=== PATIENT | male | born 1960 | race Caucasian/White ===

== ENCOUNTER → 2018-02-01 15:15 | Outpatient (REF) | payer BC, SELFPAY ==
[2018-02-01 18:08] LABS: Basophils # 0.1 K/mm3 (0-0.2); Basophils % 0.8 % (0.1-2.0); Eosinophils # 0.1 K/mm3 (0.0-0.4); Eosinophils % 2.1 % (0.1-12.0); Hematocrit 43.6 % (42.0-52.0); Hemoglobin 15.3 g/dL (14.1-18.0); Lymphocytes # 1.5 K/mm3 (0.7-4.5); Lymphocytes % 21.4 K/mm3 (10-50); Mean Corpuscular HGB Conc 35.1 g/dL (31.8-35.4); Mean Corpuscular Hemoglobin 33.9 pg (27.0-31.2); Mean Corpuscular Volume 96.6 fl (80-94); Mean Platelet Volume 7.3 fl (7.4-10.4); Monocytes # 0.5 K/mm3 (0.1-1.0); Monocytes % 7.3 % (1.7-9.3); Neutrophils # 4.7 K/mm3 (1.8-7.8); Neutrophils % 68.4 % (37.0-80.0); Platelet Count 284 K/mm3 (142-424); Red Blood Count 4.51 M/mm3 (4.60-6.20); White Blood Count 6.9 K/mm3 (4.8-10.8)
[2018-02-01 18:30] LABS: Alanine Aminotransferase 42 U/L (12-78); Albumin Level 4.2 gm/dL (3.4-5.0); Albumin/Globulin Ratio 1.2 (1.1-1.8); Alkaline Phosphatase 85 U/L (46-116); Anion Gap 15.2 mEq/L (5-15); Aspartate Amino Transferase 21 U/L (15-37); Bilirubin,Total 0.3 mg/dL (0.2-1.0); Blood Urea Nitrogen 16 mg/dL (7-18); Calcium 9.8 mg/dL (8.5-10.1); Carbon Dioxide 26 mmol/L (21.0-32.0); Chloride 103 mmol/L (98-107); Chol/HDL Ratio 5.7 (1-3.5); Cholesterol 170 mg/dL (140-200); Estimated Glomerular Filt Rate 69 ml/min (>60); Free T4 (Free Thyroxine) 1.02 ng/dl (0.76-1.46); GFR (African American) 84 ML/MIN (>60); Globulin 3.6 gm/dl (1.3-3.2); Glucose 120 mg/dL (74-106); HDL Cholesterol 30 mg/dL (27-67); LDL Cholesterol 73 mg/dL (0-130); Potassium 4.2 mmoL/L (3.5-5.1); Sodium 140 mmol/L (136-145); Thyroid Stimulating Hormone 3.02 uIU/ml (0.358-3.740); Total Protein,Serum 7.8 gm/dL (6.4-8.2); Triglycerides 335 mg/dL (30-200); VLDL Cholesterol 67 mg/dL (0-40)
[2018-02-03 13:31] LABS: PSA, Free 0.19 ng/mL; Prostate Specific Ag 0.4 ng/mL (0.0-4.0)
== END ==
LOC: LAB 15:15
PROVIDERS: Visit Provider Emergency Medicine
DX: E03.9 Hypothyroidism, unspecified (principal); R53.83 Other fatigue
CPT/HCPCS: 80053; 80061; 82652; 84153; 84154; 84439; 84443; 85025

== ENCOUNTER → 2018-07-13 19:12 | Outpatient (REF) | payer BC, SELFPAY ==
[2018-07-13 19:51] LABS: Basophils % 0.8 % (0.1-2.0); Eosinophils # 0.1 K/mm3 (0.0-0.4); Eosinophils % 1.8 % (0.1-12.0); Hematocrit 45.5 % (42.0-52.0); Hemoglobin 15.7 g/dL (14.1-18.0); Lymphocytes # 1.2 K/mm3 (0.7-4.5); Lymphocytes % 26.3 K/mm3 (10-50); Mean Corpuscular HGB Conc 34.5 g/dL (31.8-35.4); Mean Corpuscular Hemoglobin 33.9 pg (27.0-31.2); Mean Corpuscular Volume 98.1 fl (80-94); Mean Platelet Volume 8.2 fl (7.4-10.4); Monocytes # 0.4 K/mm3 (0.1-1.0); Monocytes % 8.5 % (1.7-9.3); Neutrophils # 2.8 K/mm3 (1.8-7.8); Neutrophils % 62.6 % (37.0-80.0); Platelet Count 260 K/mm3 (142-424); Red Blood Count 4.64 M/mm3 (4.60-6.20); Red Cell Distribution Width 13.8 % (11.5-17.5); White Blood Count 4.5 K/mm3 (4.8-10.8)
[2018-07-13 20:33] LABS: Alanine Aminotransferase 51 U/L (12-78); Albumin Level 4.4 gm/dL (3.4-5.0); Albumin/Globulin Ratio 1.2 (1.1-1.8); Alkaline Phosphatase 81 U/L (46-116); Anion Gap 14.5 mEq/L (5-15); Aspartate Amino Transferase 28 U/L (15-37); Bilirubin,Total 0.6 mg/dL (0.2-1.0); Blood Urea Nitrogen 12 mg/dL (7-18); Calcium 9.5 mg/dL (8.5-10.1); Carbon Dioxide 28 mmol/L (21.0-32.0); Chloride 103 mmol/L (98-107); Chol/HDL Ratio 4.2 (1-3.5); Cholesterol 148 mg/dL (140-200); Creatinine,Serum 1.06 mg/dL (0.70-1.30); Estimated Glomerular Filt Rate 73 ml/min (>60); Free T4 (Free Thyroxine) 1.07 ng/dl (0.76-1.46); GFR (African American) 88 ML/MIN (>60); Globulin 3.6 gm/dl (1.3-3.2); Glucose 96 mg/dL (74-106); HDL Cholesterol 35 mg/dL (27-67); LDL Cholesterol 81 mg/dL (0-130); Potassium 4.5 mmoL/L (3.5-5.1); Sodium 141 mmol/L (136-145); Thyroid Stimulating Hormone 3.29 uIU/ml (0.358-3.740); Triglycerides 158 mg/dL (30-200); VLDL Cholesterol 32 mg/dL (0-40)
[2018-07-13 21:41] LABS: Hemoglobin A1C 5.5 % (0.0-7.0)
[2018-07-15 18:06] LABS: PSA, Free 0.19 ng/mL; Prostate Specific Ag 0.4 ng/mL (0.0-4.0)
== END ==
LOC: LAB 19:12
PROVIDERS: PCP Physician Assistant; Visit Provider Physician Assistant
DX: R53.83 Other fatigue (principal)
CPT/HCPCS: 80053; 80061; 83036; 84153; 84154; 84439; 84443; 85025

== ENCOUNTER → 2019-05-16 14:33 | Outpatient (CLI) | payer MEDICAID, SELFPAY ==
[2019-05-16 15:06] LABS: Basophils % 0.8 % (0.1-2.0); Eosinophils # 0.1 K/mm3 (0.0-0.4); Eosinophils % 2.4 % (0.1-12.0); Hematocrit 48.7 % (42.0-52.0); Hemoglobin 16.4 g/dL (14.1-18.0); Lymphocytes # 1.2 K/mm3 (0.7-4.5); Lymphocytes % 26.1 % (10-50); Mean Corpuscular HGB Conc 33.7 g/dL (31.8-35.4); Mean Corpuscular Hemoglobin 32.7 pg (27.0-31.2); Mean Corpuscular Volume 97.1 fl (80-94); Mean Platelet Volume 7.2 fl (7.4-10.4); Monocytes # 0.4 K/mm3 (0.1-1.0); Monocytes % 8.3 % (1.7-9.3); Neutrophils # 2.9 K/mm3 (1.8-7.8); Neutrophils % 62.5 % (37.0-80.0); Platelet Count 277 K/mm3 (142-424); Red Blood Count 5.01 M/mm3 (4.60-6.20); Red Cell Distribution Width 13.4 % (11.5-17.5); White Blood Count 4.7 K/mm3 (4.8-10.8)
[2019-05-16 16:06] LABS: Alanine Aminotransferase 55 U/L (12-78); Albumin Level 4.3 gm/dL (3.4-5.0); Albumin/Globulin Ratio 1.2 (1.1-1.8); Alkaline Phosphatase 72 U/L (46-116); Anion Gap 13.9 mEq/L (5-15); Aspartate Amino Transferase 24 U/L (15-37); Bilirubin,Total 0.4 mg/dL (0.2-1.0); Blood Urea Nitrogen 14 mg/dL (7-18); Calcium 9.9 mg/dL (8.5-10.1); Carbon Dioxide 28 mmol/L (21.0-32.0); Chloride 101 mmol/L (98-107); Chol/HDL Ratio 5.3 (1-3.5); Cholesterol 169 mg/dL (140-200); Creatinine,Serum 1.04 mg/dL (0.70-1.30); Estimated Glomerular Filt Rate 74 ml/min (>60); Free T4 (Free Thyroxine) 0.96 ng/dl (0.76-1.46); GFR (African American) 89 ML/MIN (>60); Globulin 3.7 gm/dl (1.3-3.2); Glucose 106 mg/dL (74-106); HDL Cholesterol 32 mg/dL (27-67); LDL Cholesterol 83 mg/dL (0-130); Potassium 3.9 mmoL/L (3.5-5.1); Sodium 139 mmol/L (136-145); Triglycerides 269 mg/dL (30-200); VLDL Cholesterol 54 mg/dL (0-40)
[2019-05-18 12:35] LABS: PSA, Free 0.18 ng/mL; Prostate Specific Ag 0.4 ng/mL (0.0-4.0); Vitamin D 25 Hydroxy 34.5 ng/mL (30.0-100.0)
== END ==
PROVIDERS: Visit Provider Emergency Medicine
DX: I10 Essential (primary) hypertension (principal); E03.9 Hypothyroidism, unspecified; E66.9 Obesity, unspecified; G47.33 Obstructive sleep apnea (adult) (pediatric); R53.83 Other fatigue; Z99.89 Dependence on other enabling machines and devices
CPT/HCPCS: 80053; 80061; 82652; 84153; 84154; 84439; 84443; 85025

== ENCOUNTER → 2019-05-24 17:57 | Outpatient (CLI) | payer MEDICAID, SELFPAY ==
[2019-05-26 11:45] LABS: Folate 10.8 ng/mL (>3.0)
[2019-05-26 11:45] LABS: Vitamin B12 263 pg/mL (232-1245)
== END ==
PROVIDERS: Visit Provider Emergency Medicine
DX: D64.9 Anemia, unspecified (principal)
CPT/HCPCS: 82607; 82746

== ENCOUNTER 2020-05-19 15:41 | Emergency (ER) | payer OTHER, SELFPAY ==
[2020-05-19 16:46] VITALS: BP 136/81; PULSE 67; RESP 17; TEMP 36.9; O2SAT 98; BMI 35.3
--- NOTE | 2020-05-19 17:05 | HMH.EDUTC ---
[facility] [place] Clinical Impression: Tendonitis, Achilles, right Disposition: Home, Self-Care Condition on Discharge: Good Instructions: Achilles Tendinopathy Additional Instructions: Rest the extremity, Wear the tangela wrap for compression, Elevate the extremity as tolerated while you are resting. Take ibuprofen for pain. Take the steroids as directed. Follow up with Dr. Woodruff. I put in a referral but you need to call her office and schedule an appointment. Follow up with your regular doctor. GO TO THE ER FOR ANY WORSENING SYMPTOMS Prescriptions: methylPREDNISolone [Medrol] 4 mg PO DIRECTED 6 Days #21 tab.[email or web address] Transmission Status: Received by [id number] Referrals: Rubens Ramos MD [Primary Care Provider] - Abimbola Woodruff DPM [Staff Physician] - Time of Disposition: 17:15 Medical Decision Making - Medical Records Medical records reviewed: No: I reviewed the patient's medical records. - Coleman Inquiry Pt receiving controlled substance: No Vital Signs: 05/19/20 16:46 05/19/20 17:20 Temperature 98.4 F 98.4 F Temperature Source Oral Pulse Rate 67 Pulse Rate [Right Brachial] 67 Respiratory Rate 17 17 Blood Pressure 136/81 Blood Pressure [Right Arm] 136/81 Blood Pressure Mean [Right Arm] 99 Blood Pressure Source [Right Arm] Automatic Cuff Blood Pressure Position [Right Arm] Sitting 02 Sat by Pulse Oximetry 98 Oxygen Delivery Method Room Air [facility] [place] HPI - General Stated complaint: Knot on left foot Time Seen by Provider: 05/19/20 17:05 Mode of Arrival: Ambulatory Source of Information: Patient Limitations: No Limitations Description of Symptoms (Recalled from Triage Doc. by RN): PATIENT C/O KNOT ON INSIDE OF LEFT FOOT SINCE WEDNESDAY HEENT Symptoms (Recalled from RN notes): No Resp Symptoms (Recalled from RN notes): No Skin Symptoms (Recalled from RN notes): Yes MS Symptoms (Recalled from RN notes): No Functional Status (Recalled from RN notes): WNL - History of Present Illness Provider Complaint: He has had a painful raised area on the back of his left heel for the past 3 days. He denies any injury. He does state that he has been having to walk more than he normally does. - Related Data Previous Rx's Medication Instructions Recorded ergocalciferol (vitamin D2) 1,250 See Rx Instructions .ROUTE 02/07/20 mcg (50,000 unit) capsule .COMPLEX #14 each hydrochlorothiazide 12.5 mg tablet 12.5 mg PO DAILY #90 tab 02/07/20 levothyroxine 50 mcg tablet 50 mcg PO DAILY #90 tab 02/07/20 losartan 50 mg tablet 50 mg PO DAILY #90 tab 02/07/20 paroxetine HCl 40 mg tablet See Rx Instructions .ROUTE 02/07/20 .COMPLEX #90 tablet methylPREDNISolone [Medrol] 4 mg PO DIRECTED 6 Days #21 05/19/20 tab.[email or web address] Allergies Allergy/AdvReac Type Severity Reaction Status Date / Time No Known Allergies Allergy Verified 02/07/20 14:07 - Worker's Comp Is this a Worker's Comp case?: No [facility] History - Hepatitis A Screen Drug use history?: No High risk sexual behaviors?: No History of sexually transmitted infection?: No Currently employed?: No Childcare worker?: No Do you have indoor plumbing?: Yes Do you have electricity?: Yes Attestation statement:: This patient has been screened for Hepatitis A risk factors. I have reviewed the patient's past medical history: Yes Medical History: Reports:: Hypertension Denies:: Diabetes Mellitus Type 1, Diabetes Mellitus Type 2, Internal Pacemaker, Lung Disease, Seizures Other Medical History: Reports: Hypothyroidism Other Surgeries: Yes: Colonoscopy, Other. No: Pacemaker Amputation: No Fractures: No - Social History Smoking Status: Never smoker Alcohol Intake: never Alcohol Intake Frequency:: other Substance Use Type: denies use Occupational Status: other Housing: house Household Members: spouse, children Family Hx:: Unable to obtain ROS Obtained: Yes All systems reviewed & no additional complaints - [employer]
[2020-05-19 17:20] VITALS: BP 136/81; PULSE 67; RESP 17; TEMP 36.9; O2SAT 98
== END 2020-05-19 17:26 | disposition home or self-care (01) ==
PROVIDERS: Emergency Provider Nurse Practitioner Family; PCP Emergency Medicine
DX: M76.62 Achilles tendinitis, left leg (principal); I10 Essential (primary) hypertension; E03.9 Hypothyroidism, unspecified; Z79.899 Other long term (current) drug therapy
CPT/HCPCS: 99201

== ENCOUNTER → 2020-06-05 18:19 | Outpatient (CLI) | payer OTHER, SELFPAY ==
[2020-06-05 18:53] LABS: Basophils # 0.1 K/mm3 (0-0.2); Basophils % 0.7 % (0.1-2.0); Eosinophils # 0.1 K/mm3 (0.0-0.4); Eosinophils % 2.3 % (0.1-12.0); Hemoglobin 16.2 g/dL (14.1-18.0); Lymphocytes # 1.4 K/mm3 (0.7-4.5); Lymphocytes % 22.6 % (10-50); Mean Corpuscular HGB Conc 33.7 g/dL (31.8-35.4); Mean Platelet Volume 7.9 fl (7.4-10.4); Monocytes # 0.6 K/mm3 (0.1-1.0); Monocytes % 9.8 % (1.7-9.3); Neutrophils % 64.7 % (37.0-80.0); Platelet Count 241 K/mm3 (142-424); Red Blood Count 4.76 M/mm3 (4.60-6.20); Red Cell Distribution Width 13.7 % (11.5-17.5); White Blood Count 6.2 K/mm3 (4.8-10.8)
[2020-06-05 19:04] LABS: Alanine Aminotransferase 35 U/L (12-78); Albumin Level 4.5 g/dl (3.5-5.0); Albumin/Globulin Ratio 1.5 (1.1-1.8); Alkaline Phosphatase 95 U/L (38-126); Anion Gap 16.1 mEq/L (5-15); Aspartate Amino Transferase 32 U/L (17-59); Bilirubin,Total 0.5 mg/dl (0.2-1.3); Blood Urea Nitrogen 13 mg/dl (9-20); Carbon Dioxide 26 mmol/L (22.0-30.0); Chloride 100 mmol/L (98-107); Chol/HDL Ratio 5.4 (1-3.5); Cholesterol 172 mg/dl (140-200); Estimated Glomerular Filt Rate 87 ml/min (>60); GFR (African American) 105 ML/MIN (>60); Glucose 115 mg/dl (74-100); HDL Cholesterol 32 mg/dl (40-60); Potassium 4.1 mmoL/L (3.5-5.1); Sodium 138 mmol/L (136-145); Total Protein,Serum 7.5 g/dl (6.3-8.2)
[2020-06-05 19:05] LABS: Triglycerides 476 mg/dl (30-150)
[2020-06-05 19:16] LABS: Direct LDL Cholesterol 101.41 mg/dL (100-129)
[2020-06-05 19:19] LABS: 25-OH Vitamin D, Total 34.8 ng/mL (30-100)
[2020-06-05 19:23] LABS: T4 (Thyroxine) 10.3 ug/dl (5.53-11.0)
[2020-06-05 19:36] LABS: Prostate Specific Ag Screen 0.5 ng/ml (0.0-4.0); Thyroid Stimulating Hormone 2.68 uIU/mL (0.465-4.68)
== END ==
PROVIDERS: Visit Provider Nurse Practitioner Family
DX: I10 Essential (primary) hypertension (principal); E03.9 Hypothyroidism, unspecified; E55.9 Vitamin D deficiency, unspecified; Z12.5 Encounter for screening for malignant neoplasm of prostate
CPT/HCPCS: 80053; 80061; 82306; 84436; 84443; 85025; G0103

== ENCOUNTER → 2020-06-11 17:16 | Outpatient (CLI) | payer OTHER, SELFPAY ==
[2020-06-11 18:09] LABS: Hemoglobin A1C 6.3 % (4.0-6.0)
== END ==
PROVIDERS: Visit Provider Nurse Practitioner Family
DX: R73.09 Other abnormal glucose (principal)
CPT/HCPCS: 36415; 83036

== ENCOUNTER → 2021-02-10 14:31 | Outpatient (CLI) | payer OTHER, SELFPAY ==
--- NOTE | 2021-02-10 | ECG_ITS ---
APPROVED REPORT Exam: Resting ECG HR:98 bpm ECG Measurements Heart Rate 98 AXES [place] 138 P 52 QRSd 92 QRS -28 QT 350 T 52 QTc 446 Conclusion Normal sinus rhythm Low voltage QRS O/w normal ECG Electronically signed by : eTjas Hou, 02/15/2021 07:37:35
[2021-02-10 15:17] LABS: Basophils # 0.1 K/mm3 (0-0.2); Basophils % 1.4 % (0.1-2.0); Eosinophils # 0.1 K/mm3 (0.0-0.4); Eosinophils % 0.8 % (0.1-12.0); Hematocrit 47.9 % (42.0-52.0); Hemoglobin 16.7 g/dL (14.1-18.0); Lymphocytes # 1.4 K/mm3 (0.7-4.5); Lymphocytes % 20.2 % (10-50); Mean Corpuscular HGB Conc 34.9 g/dL (31.8-35.4); Mean Corpuscular Hemoglobin 33.2 pg (27.0-31.2); Mean Corpuscular Volume 95.1 fl (80-94); Mean Platelet Volume 7.2 fl (7.4-10.4); Monocytes # 0.6 K/mm3 (0.1-1.0); Monocytes % 8.7 % (1.7-9.3); Neutrophils # 4.8 K/mm3 (1.8-7.8); Platelet Count 285 K/mm3 (142-424); Red Blood Count 5.04 M/mm3 (4.60-6.20); Red Cell Distribution Width 13.9 % (11.5-17.5)
== END ==
PROVIDERS: Visit Provider Otolaryngology
DX: Z01.812 Encounter for preprocedural laboratory examination (principal); Z11.52 Encounter for screening for COVID-19; L98.9 Disorder of the skin and subcutaneous tissue, unspecified; H02.9 Unspecified disorder of eyelid
CPT/HCPCS: 36415; 85025; 93005; U0003

== ENCOUNTER 2021-02-13 06:19 | Day surgery (SDC) | payer OTHER, SELFPAY ==
[2021-02-11 13:26] VITALS: BMI 37.2
[2021-02-13] VITALS (9 sets, daily range): BP systolic 121–152; BP diastolic 74–89; PULSE 87–105; RESP 18–20; TEMP 36.3–36.6; O2SAT 93–99
--- NOTE | 2021-02-13 07:03 | HMH.ANESCL ---
[facility] Anesthesia Checklist - Patient Identification Patient Identification: Arm Band - Structural Data Admitted From: Home Planned Operative Procedure/s: Excision neoplasm, lesion L. eyelid/neck Consent for Planned Operative Procedure(s) Verified: Yes - NPO Status Verified Time NPO: 08:00 (Sip of water with meds) - Additional verifications Anesthesia Reactions: No Hx Blood Transfusions: No Blood Transfusion Reaction: No - Airway Assessment C-Spine Mobility Assessed: Yes TMJ Mobility Assessed: Yes Dentition: Poor Dentition - Neurological Assessment Level of Consciousness: Awake Hx Seizures: No Numbness or tingling in extremities: No - Anesthesia Plan Anesthesia Risk discussed: Yes Anesthesia Plan: Verified ASA Class: III Anesthesia Type: General [facility] History I have reviewed the patient's past medical history: Yes Medical History: Reports:: Gastroesophageal Reflux Disease(GERD), Hypertension Denies:: Cancer, Diabetes Mellitus Type 1, Diabetes Mellitus Type 2, Internal Pacemaker, Lung Disease, MRSA, Seizures *Have you ever received a pneumonia vaccine?: No *Have you received a flu vaccine this season?: No Other Medical History: Reports: Hypothyroidism, Other (JUSTO). Denies: Blood Transfusion Reaction Anesthesia experience/problems:: None Other Surgeries: Yes: Colonoscopy, Other. No: Pacemaker Amputation: No Fractures: No - *Social History Last grade of school completed: High school graduate Smoking Status: Never smoker Alcohol Intake: never Alcohol Intake Frequency:: other Substance Use Type: denies use *Occupational Status:: unemployed Housing: house Household Members: family *Travel in the last 8 weeks: None Family Hx:: Cancer
--- NOTE | 2021-02-13 08:29 | HMH.ANESI ---
[facility] Anesthesia Record Part I Intake, IV Amount: 600 Estimated blood loss (mL): 0 Urine output (mL): 0 Blood Pressure: 121/76 SaO2: 93 Pulse Rate: 87 Respiratory Rate: 19 Temperature: 97.4 F Patient is:: Drowsy, Oral/Nasal airway Stable to PACU at:: 08:25
--- NOTE | 2021-02-13 08:56 | PC.NURSE ---
0852-detailed report called to KRISTIAN Broderick 0855-pt transported to post op via stretcher w/nic rails up and left in care of KRISTIAN Broderick, vss, pt stable
--- NOTE | 2021-02-13 08:59 | P.OP_ITS ---
Date of procedure: 02/13/21 Pre-op Diagnosis:: 1. 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 Excision of neoplasm left lower eyelid 2.2 with tissue rearrangement geometric plastic repair 2. Excision of neoplasm left neck 3.8 cm with tissue rearrangement geometric plastic repair Surgeon:: Braden Beaver MD GLASSWARE MAKER:: Other (Thuri) Anesthesia: GETA Estimated blood loss (mL): 5 Operative findings:: same Operative note:: With the patient under general anesthetic the, left face was prepped and draped. The lesion on the lower aspect of the left lower eyelid was infiltrated with 2 cc of 2% lidocaine containing epinephrine. The rigoberto out was incised and the lesion was excised and submitted it measured 2.2 cm. Bleeding was stopped with bipolar cautery. Inferior incisions were made and a tissue rearrangement geometric plastic repair was done with interrupted 3-0 nylon sutures. A Steri- Strip dressing was applied. The patient was repositioned and the left neck was prepped and draped. The lesion measured 3.8 cm and the rigoberto out was incised and the lesion was excised and submitted. Superior and inferior incisions were made and a tissue rearrangement geometric plastic repair was done after Surgicel snow was placed in the defect and all of the bleeding was stopped with bipolar cautery. An excellent repair was obtained using 3-0 nylon and a Dermabond dressing was applied. The patient tolerated the procedure well and was sent to recovery in g ood general condition. Condition: stable Disposition: PACU Complications:: none
--- NOTE | 2021-02-13 12:03 | HMH.ANESII ---
[facility] Anesthesia Record Part II Discharge Time: 09:05 Destination: [facility] PACU nurse assessment reviewed?: Yes Patient Condition:: Good Anesthesia Complications:: None Swallowing reflex intact?: Yes Cyanosis?: No Blood Pressure: 133/81 Pulse Rate: 93 Temperature: 97.8 F Mental Status: Alert & Oriented Pain level:: 0 Nausea and/or vomitting:: None Intake, IV Amount: 500
== END 2021-02-13 09:24 | disposition home or self-care (01) ==
LOC: OR 06:21
PROVIDERS: PCP Nurse Practitioner Family; Visit Provider Otolaryngology
PROC: (CPT 14060; principal; 2021-02-13 07:30)
DX: D22.4 Melanocytic nevi of scalp and neck (principal); D22.122 Melanocytic nevi of left lower eyelid, including canthus; K21.9 Gastro-esophageal reflux disease without esophagitis; I10 Essential (primary) hypertension; E03.9 Hypothyroidism, unspecified; G47.33 Obstructive sleep apnea (adult) (pediatric); Z80.9 Family history of malignant neoplasm, unspecified; Z79.899 Other long term (current) drug therapy
CPT/HCPCS: 14060; 14040; 96374; 96375

== ENCOUNTER → 2022-09-23 15:30 | Outpatient (CLI) | payer OTHER, SELFPAY ==
[2022-09-23 20:35] LABS: Chloride 103 mmol/L (98-107); Potassium 4.1 mmoL/L (3.5-5.1); Sodium 139 mmol/L (136-145)
[2022-09-23 20:38] LABS: Alanine Aminotransferase 41 U/L (12-78); Albumin Level 4.7 g/dl (3.5-5.0); Albumin/Globulin Ratio 1.5 (1.1-1.8); Alkaline Phosphatase 80 U/L (38-126); Anion Gap 14.1 mEq/L (5-15); Aspartate Amino Transferase 31 U/L (17-59); Bilirubin,Total 0.5 mg/dl (0.2-1.3); Blood Urea Nitrogen 13 mg/dl (9-20); Carbon Dioxide 26 mmol/L (22.0-30.0); Cholesterol 186 mg/dl (140-200); Estimated Glomerular Filt Rate 86 ml/min (>60); GFR (African American) 105 ML/MIN (>60); Globulin 3.2 g/dL (1.3-3.2); Total Protein,Serum 7.9 g/dl (6.3-8.2); Triglycerides 331 mg/dl (30-150); VLDL Cholesterol 66 mg/dL (0-40)
[2022-09-23 20:39] LABS: Calcium 9.8 mg/dl (8.4-10.2); Chol/HDL Ratio 5.3 (1-3.5); Glucose 117 mg/dl (74-100); HDL Cholesterol 35 mg/dl (40-60)
[2022-09-23 20:51] LABS: Basophils # 0.1 K/mm3 (0-0.2); Basophils % 1.6 % (0.1-2.0); Eosinophils # 0.1 K/mm3 (0.0-0.4); Eosinophils % 2.2 % (0.1-12.0); Hematocrit 48.1 % (42.0-52.0); Hemoglobin 16.5 g/dL (14.1-18.0); Lymphocytes # 1.9 K/mm3 (0.7-4.5); Lymphocytes % 33.9 % (10-50); Mean Corpuscular HGB Conc 34.4 g/dL (31.8-35.4); Mean Corpuscular Hemoglobin 33.9 pg (27.0-31.2); Mean Corpuscular Volume 98.6 fl (80-94); Mean Platelet Volume 8.6 fl (7.4-10.4); Monocytes # 0.6 K/mm3 (0.1-1.0); Monocytes % 9.6 % (1.7-9.3); Neutrophils % 52.7 % (37.0-80.0); Platelet Count 300 K/mm3 (142-424); Red Blood Count 4.88 M/mm3 (4.60-6.20); Red Cell Distribution Width 13.9 % (11.5-17.5); White Blood Count 5.7 K/mm3 (4.8-10.8)
[2022-09-23 21:04] LABS: Direct LDL Cholesterol 103.96 mg/dL (100-129)
[2022-09-23 21:09] LABS: Prostate Specific Ag Screen 0.6 ng/ml (0.0-4.0)
[2022-09-23 21:10] LABS: Thyroid Stimulating Hormone 3.24 uIU/mL (0.465-4.68)
[2022-09-23 21:29] LABS: Vitamin B12 236 pg/mL (239-931)
[2022-09-23 21:53] LABS: Folate 7.23 ng/mL
== END ==
PROVIDERS: PCP Nurse Practitioner Family; Visit Provider Nurse Practitioner Family
DX: I10 Essential (primary) hypertension (principal); R53.83 Other fatigue; E53.8 Deficiency of other specified B group vitamins; Z12.5 Encounter for screening for malignant neoplasm of prostate
CPT/HCPCS: 80053; 80061; 82607; 82746; 84443; 85025; G0103

== ENCOUNTER 2024-03-24 14:50 | Outpatient (CLI) | payer OTHER, SELFPAY ==
[2024-03-24 18:13] LABS: Basophils # 0.1 K/mm3 (0-0.2); Basophils % 1.5 % (0.1-2.0); Eosinophils # 0.1 K/mm3 (0.0-0.4); Eosinophils % 1.2 % (0.1-12.0); Hematocrit 44.8 % (42.0-52.0); Hemoglobin 15.2 g/dL (14.1-18.0); Lymphocytes # 1.2 K/mm3 (0.7-4.5); Lymphocytes % 19.3 % (10-50); Mean Corpuscular HGB Conc 33.9 g/dL (31.8-35.4); Mean Corpuscular Hemoglobin 32.6 pg (27.0-31.2); Mean Corpuscular Volume 96.3 fl (80-94); Mean Platelet Volume 8.4 fl (7.4-10.4); Monocytes # 0.6 K/mm3 (0.1-1.0); Monocytes % 9.6 % (1.7-9.3); Neutrophils # 4.2 K/mm3 (1.8-7.8); Neutrophils % 68.4 % (37.0-80.0); Platelet Count 247 K/mm3 (142-424); Red Blood Count 4.65 M/mm3 (4.60-6.20); White Blood Count 6.1 K/mm3 (4.8-10.8)
[2024-03-24 18:45] LABS: Chloride 101 mmol/L (98-107); Potassium 4.1 mmoL/L (3.5-5.1); Sodium 135 mmol/L (136-145)
[2024-03-24 18:47] LABS: Alanine Aminotransferase 35 U/L (12-78); Aspartate Amino Transferase 24 U/L (17-59); Blood Urea Nitrogen 12 mg/dl (9-20); Estimated Glomerular Filt Rate 86 ml/min (>60); GFR (African American) 104 ML/MIN (>60)
[2024-03-24 18:48] LABS: Albumin Level 4.5 g/dl (3.5-5.0); Albumin/Globulin Ratio 1.5 (1.1-1.8); Alkaline Phosphatase 73 U/L (38-126); Anion Gap 13.1 mEq/L (5-15); Calcium 9.5 mg/dl (8.4-10.2); Carbon Dioxide 25 mmol/L (22.0-30.0); Cholesterol 178 mg/dl (140-200); Glucose 200 mg/dl (74-100); Total Protein,Serum 7.5 g/dl (6.3-8.2); Triglycerides 249 mg/dl (30-150); VLDL Cholesterol 50 mg/dL (0-40)
[2024-03-24 18:49] LABS: Chol/HDL Ratio 4.9 (1-3.5); HDL Cholesterol 36 mg/dl (40-60)
[2024-03-24 18:59] LABS: Direct LDL Cholesterol 106.17 mg/dL (100-129)
[2024-03-24 19:00] LABS: Troponin I < 0.01 ng/ml (0.00-0.034)
[2024-03-24 19:01] LABS: Triiodothryronine (T3) Uptake 28 % (23.5-40.5)
[2024-03-24 19:02] LABS: Free Thyroxine Index 2.4 ug/dL (5.93-13.13); T4 (Thyroxine) 8.5 ug/dl (5.53-11.0)
[2024-03-24 19:03] LABS: 25-OH Vitamin D, Total 33.1 ng/mL (30-100)
[2024-03-24 19:06] LABS: Hemoglobin A1C 9.6 % (4.0-6.0)
[2024-03-24 20:30] LABS: Prostate Specific Ag Screen 0.4 ng/ml (0.0-4.0)
== END 2024-03-24 23:59 | disposition home or self-care (01) ==
LOC: LAB.DROPOF 03-25 10:51
PROVIDERS: PCP Family Medicine; Visit Provider Family Medicine
DX: E03.9 Hypothyroidism, unspecified (principal); E66.9 Obesity, unspecified; I10 Essential (primary) hypertension; E55.9 Vitamin D deficiency, unspecified
CPT/HCPCS: 80050; 80053; 80061; 82306; 83036; 84436; 84443; 84479; 84484; 85025; G0103

== ENCOUNTER 2024-03-27 09:52 | Outpatient (CLI) | payer OTHER, SELFPAY ==
--- NOTE | 2024-03-27 10:01 | XR_ITS ---
FINAL REPORT CLINICAL HISTORY: Right knee pain FINDINGS: Three views of the right knee reveal no evidence of fracture or dislocation. The bony alignment is normal. There are mild degenerative changes. There is a small joint effusion. No localized soft tissue abnormality is identified. IMPRESSION: Mild degenerative changes and a small joint effusion. Reviewed, Interpreted and Dictated by Butch Lacey III, MD Transcribed by Mary Mcdowell Authenticated and . [facility]
== END 2024-03-27 23:59 | disposition home or self-care (01) ==
LOC: RAD 09:54
PROVIDERS: PCP Internal Medicine; Visit Provider Internal Medicine
DX: M25.561 Pain in right knee (principal)
CPT/HCPCS: 73562

== ENCOUNTER 2024-04-06 14:51 | Outpatient (CLI) | payer OTHER, SELFPAY ==
--- NOTE | 2024-04-06 14:56 | CA_ITS ---
APPROVED REPORT EXAM: Comprehensive 2D, Doppler, and color-flow Echocardiogram Fashion Artist: Janis Davila, HERRERA, RVS Ht: 6 ft 2 in Wt: 277lbs BSA: 2.50 BP: 142/78 mmHg Indications: CP, ABN EKG, JUSTO, DM Echo Enhancing Agent Indication: no IV access Comments: Poor acoustics throughout due to bodyhabitus. 2D Dimensions IVSd 1.37 cm LVEF (Visual) 75.70 % PWd 1.11 cm LA Volume 52.20 mL LVDd 5.39 cm LA Volume Index 20.90 mL/m2 (M/F) 16-34 LVDs 2.97 cm Aortic Root 3.04 cm Left Atrium 3.75 cm RVID Base (AP4) 2.83 cm (M/F) 2.5-4.1 LVOT 2.15 cm (M/F) 1.5-2.5 M-Mode Dimensions RVDd 2.21 cm (0.9-2.6) LVDd 5.39 cm (3.5-5.7) Ao Diam 3.37 cm (2.0-3.7) LVDs 3.95 cm (3.5-5.7) IVSd 1.44 cm (0.6-1.1) PWd 1.15 cm (0.6-1.1) EF (Teich) 42.80% EPSs 0.98 cm FS 29.10% EDV (Teich) 118.80 mL TAPSE 2.60 (<1.7) ESV (Teich) 67.90 mL LV Diastology E Decel Time 178 (160-240 msec) E/A Ratio 0.81 MED E' 5.4 (>= 7 cm/sec) MED A' 10.80 cm/s E'/MED E' Ratio 12.22 (<= 14) LAT E' 6.0 (>= 10 cm/sec) LAT A' 10.90 cm/s E/LAT E' Ratio 11.00 (<= 14) Aortic Valve LVOT Max 108.0 (70-110 cm/s) GRISELDA Index 1.79 cm2/m2 LVOT VTI 22.91 cm AoV Peak Shen. 140.0 (50-130 cm/s) AO Mean GR. 3.90 (<5 mmHg) AO VTI 18.6 (18-25 cm) GRISELDA (VTI) 4.48 (2.5-4.5 cm2) Mitral Valve MV E Max Shen. 66.0 (40-130 cm/s) MV A Velocity 82.0 (40-130 cm/s) E/A Ratio 0.81 MV Decel. Time 178 (160-240 ms) Tricuspid Valve TR P. Velocity 184.00 cm/s Left Ventricle The left ventricle is normal size. The left ventricular systolic function is normal. The left ventricular ejection fraction is within the normal range. There is increased LV wall thickness. There is normal LV segmental wall motion. Transmitral Doppler flow pattern suggests impaired LV relaxation. LVEF is 55%. Right Ventricle The right ventricle is mildly dilated. The right ventricular systolic function is normal. Atria The left atrium size is normal. The right atrium size is normal. There is no Doppler evidence of interatrial shunt. Aortic Valve The aortic valve opens well. There is no aortic valvular stenosis. No aortic regurgitation is present. Mitral Valve The mitral valve is normal in structure. No evidence of mitral valve stenosis. There is no mitral valve regurgitation noted. Tricuspid Valve The tricuspid valve leaflets are thin and pliable. Trace tricuspid regurgitation. There is insufficient TR jet to estimate RVSP. Pulmonic Valve The pulmonary valve is normal in structure. Trace pulmonic regurgitation. Great Vessels The aortic root is normal in size. The ascending aorta is not well-visualized. IVC is normal in size and collapses >50% with inspiration. Pericardium There is no pericardial effusion. Conclusion Normal biventricular systolic function. Mild RV dilation. No significant valvular stenosis or regurgitation. Electronically signed by : Florencia Miguel MD 04/10/2024 00:41:00
== END 2024-04-06 23:59 | disposition home or self-care (01) ==
LOC: RT 14:52
PROVIDERS: PCP Family Medicine; Visit Provider Family Medicine
DX: I34.0 Nonrheumatic mitral (valve) insufficiency (principal); I07.1 Rheumatic tricuspid insufficiency
CPT/HCPCS: 93306

== ENCOUNTER 2024-06-26 11:07 | Outpatient (CLI) | payer OTHER, SELFPAY ==
[2024-06-26 18:45] LABS: Hemoglobin A1C 6.3 % (4.0-6.0)
[2024-06-26 18:53] LABS: Alanine Aminotransferase 38 U/L (12-78); Albumin Level 4.8 g/dl (3.5-5.0); Albumin/Globulin Ratio 1.7 (1.1-1.8); Alkaline Phosphatase 62 U/L (38-126); Anion Gap 14.9 mEq/L (5-15); Aspartate Amino Transferase 32 U/L (17-59); Bilirubin,Direct 0.4 mg/dl (0.0-0.4); Bilirubin,Indirect 0.5 mg/dL (0.0-0.9); Bilirubin,Total 0.9 mg/dl (0.2-1.3); Bilirubin,Unconjugated 0.5 mg/dL (0.0-1.1); Blood Urea Nitrogen 15 mg/dl (9-20); Calcium 10.3 mg/dl (8.4-10.2); Carbon Dioxide 25 mmol/L (22.0-30.0); Chloride 103 mmol/L (98-107); Estimated Glomerular Filt Rate 76 ml/min (>60); GFR (African American) 92 ML/MIN (>60); Globulin 2.9 g/dL (1.3-3.2); Glucose 104 mg/dl (74-100); Potassium 3.9 mmoL/L (3.5-5.1); Sodium 139 mmol/L (136-145); Total Protein,Serum 7.7 g/dl (6.3-8.2)
[2024-06-26 19:10] LABS: Free Thyroxine Index 2.9 ug/dL (5.93-13.13); T4 (Thyroxine) 9.9 ug/dl (5.53-11.0); Triiodothryronine (T3) Uptake 29 % (23.5-40.5)
[2024-06-26 19:24] LABS: Thyroid Stimulating Hormone 3.18 uIU/mL (0.465-4.68)
== END 2024-06-26 23:59 | disposition home or self-care (01) ==
LOC: LAB.DROPOF 06-27 10:16
PROVIDERS: Visit Provider Family Medicine
DX: E11.9 Type 2 diabetes mellitus without complications (principal); M17.11 Unilateral primary osteoarthritis, right knee; R06.00 Dyspnea, unspecified; G47.33 Obstructive sleep apnea (adult) (pediatric); Z99.89 Dependence on other enabling machines and devices; E66.9 Obesity, unspecified; Z68.34 Body mass index [BMI] 34.0-34.9, adult; I07.1 Rheumatic tricuspid insufficiency; F32.1 Major depressive disorder, single episode, moderate; I10 Essential (primary) hypertension; E55.9 Vitamin D deficiency, unspecified; E03.9 Hypothyroidism, unspecified
CPT/HCPCS: 80053; 80076; 83036; 84436; 84443; 84479

== ENCOUNTER 2024-11-30 11:15 | Outpatient (CLI) | payer OTHER, SELFPAY ==
[2024-11-30 19:23] LABS: Microalbumin/Creatinine Ratio 24.7
[2024-11-30 19:38] LABS: Creatinine,Urine Random 53 mg/dL (Not Estab.)
[2024-11-30 20:25] LABS: Anion Gap 14.9 mEq/L (5-15); Bilirubin,Total 0.5 mg/dl (0.2-1.3); Blood Urea Nitrogen 13 mg/dl (9-20); Calcium 9.8 mg/dl (8.4-10.2); Carbon Dioxide 24 mmol/L (22.0-30.0); Chloride 100 mmol/L (98-107); Estimated Glomerular Filt Rate 98 ml/min (>60); GFR (African American) 119 ML/MIN (>60); Glucose 260 mg/dl (74-100); Potassium 3.9 mmoL/L (3.5-5.1); Sodium 135 mmol/L (136-145)
[2024-11-30 20:26] LABS: Alanine Aminotransferase 43 U/L (12-78); Albumin Level 4.8 g/dl (3.5-5.0); Albumin/Globulin Ratio 1.8 (1.1-1.8); Alkaline Phosphatase 72 U/L (38-126); Aspartate Amino Transferase 32 U/L (17-59); Globulin 2.6 g/dL (1.3-3.2); Total Protein,Serum 7.4 g/dl (6.3-8.2)
== END 2024-11-30 23:59 | disposition home or self-care (01) ==
LOC: LAB.DROPOF 12-01 10:10
PROVIDERS: PCP Family Medicine; Visit Provider Family Medicine
DX: Z00.00 Encounter for general adult medical examination without abnormal findings (principal); E11.9 Type 2 diabetes mellitus without complications
CPT/HCPCS: 80053; 82043; 82570

== ENCOUNTER 2025-08-09 15:28 | Outpatient (CLI) | payer OTHER, SELFPAY ==
--- NOTE | 2025-08-09 16:00 | MR_ITS ---
FINAL REPORT CLINICAL HISTORY: Abnormal movement disorder, shaking of hands new onset COMPARISON: None FINDINGS: Multi planar MR imaging was obtained through the brain without contrast. The midline structures appear intact. There is no evidence of Chiari malformation. There are a few tiny foci of increased signal in the deep white matter bilaterally, nonspecific. On diffusion-weighted images there is no evidence of restricted diffusion. There is lobular mucoperiosteal thickening in the bilateral maxillary sinuses, greater on the left than on the right. No sinus air-fluid levels are identified. The seventh and eighth nerve root complexes are intact. IMPRESSION: Few tiny foci of increased signal in the deep white matter bilaterally, nonspecific. In this age group these most likely represent mild changes of ischemic microvascular disease. Chronic bilateral maxillary sinusitis. Reviewed, Interpreted and Dictated by Leroy Rosenbaum MD Transcribed by Nasra Hazel Authenticated and [facility]
== END 2025-08-09 23:59 | disposition home or self-care (01) ==
LOC: RAD 15:29
PROVIDERS: PCP Family Medicine; Visit Provider Specialist
DX: J32.0 Chronic maxillary sinusitis (principal); R90.82 White matter disease, unspecified; E03.9 Hypothyroidism, unspecified; F88 Other disorders of psychological development; F84.0 Autistic disorder; R25.9 Unspecified abnormal involuntary movements; R26.9 Unspecified abnormalities of gait and mobility; Z86.2 Personal history of diseases of the blood and blood-forming organs and certain disorders involving the immune mechanism
CPT/HCPCS: 70551

== ENCOUNTER 2025-08-30 15:50 | Outpatient (CLI) | payer OTHER, SELFPAY ==
[2025-08-30 20:32] LABS: Hematocrit 43.7 % (42.0-52.0); Hemoglobin 15.0 g/dL (14.1-18.0); Immature Granulocytes % 0.6 %; Mean Corpuscular HGB Conc 34.3 g/dL (31.8-35.4); Mean Corpuscular Hemoglobin 31.8 pg (27.0-31.2); Mean Corpuscular Volume 92.8 fl (80-94); Nucleated Red Blood Cells % 0 %; Platelet Count 277 K/mm3 (142-424); Red Blood Count 4.71 M/mm3 (4.60-6.20); Red Cell Distribution Width-SD 42.2 fL; White Blood Count 6.7 K/mm3 (4.8-10.8)
[2025-08-30 21:02] LABS: Albumin Level 4.5 g/dl (3.5-5.0); Chloride 101 mmol/L (98-107); Hemoglobin A1C 6.6 % (4.0-6.0); Potassium 4.0 mmoL/L (3.5-5.1); Sodium 139 mmol/L (136-145)
[2025-08-30 21:04] LABS: Blood Urea Nitrogen 12 mg/dl (9-20); Creatinine,Serum 0.80 mg/dl (0.66-1.25); Estimated Glomerular Filt Rate 98 ml/min (>60); GFR (African American) 119 ML/MIN (>60)
[2025-08-30 21:05] LABS: Alanine Aminotransferase 25 U/L (12-78); Albumin/Globulin Ratio 1.5 (1.1-1.8); Alkaline Phosphatase 96 U/L (38-126); Anion Gap 17.0 mEq/L (5-15); Aspartate Amino Transferase 21 U/L (17-59); Bilirubin,Total 0.5 mg/dl (0.2-1.3); Calcium 9.5 mg/dl (8.4-10.2); Carbon Dioxide 25 mmol/L (22.0-30.0); Cholesterol 96 mg/dl (140-200); Globulin 3.1 g/dL (1.3-3.2); Glucose 195 mg/dl (74-100); HDL Cholesterol 38 mg/dl (40-60); Total Protein,Serum 7.6 g/dl (6.3-8.2); Triglycerides 161 mg/dl (30-150)
[2025-08-30 21:36] LABS: Thyroid Stimulating Hormone 4.66 uIU/mL (0.465-4.68)
[2025-08-30 21:59] LABS: Vitamin B12 293 pg/mL (239-931)
== END 2025-08-30 23:59 | disposition home or self-care (01) ==
LOC: LAB.DROPOF 08-31 12:41
PROVIDERS: PCP Student in an Organized Health Care Education/Training Program; Visit Provider Family Medicine
DX: E55.9 Vitamin D deficiency, unspecified (principal); Z86.2 Personal history of diseases of the blood and blood-forming organs and certain disorders involving the immune mechanism; E11.9 Type 2 diabetes mellitus without complications
CPT/HCPCS: 80053; 80061; 82607; 83036; 84443; 85025